=== PATIENT | male | born 1955 | race Caucasian/White ===

== ENCOUNTER → 2016-10-30 | Outpatient (CLI) | payer MEDICARE | END | disposition home or self-care (01) | LOC: GMAH 10:26 | PROVIDERS: ATTEND Family Medicine | DX: Z12.5 Encounter for screening for malignant neoplasm of prostate (principal) ==

== ENCOUNTER 2018-10-06 09:20 | Emergency (ER) | payer MEDICARE ==
--- NOTE | 2018-10-06 09:48 | ED.PDOC ---
History of Present Illness - General Chief Complaint: GI Problem Stated Complaint: constipated Time Seen by Provider: 10/06/18 09:33 Source: patient Exam Limitations: no limitations - History of Present Illness Initial Comments: Patient presents with constipation for one week. He says that he has had this before and usually docusate works for him. He was prescribed Milk of Magnesia 6 days ago but says that it does not work. Since yesterday, he has noticed BRBPR. He has COPD with chronic oxygen use by DE at 2 liters and this morning he said that he was dyspneic and required 3 liters. He has also noticed an increase in lower extremity edema. He has had the LE edema before. He also believes that his abdominal girth has increased recently. He denies cardiac problems but then says that he is unsure if he has ever been diagnosed with CHF. Denies chest pain. He takes hydrocodone and uses Fentanyl patches for chronic back pain. No other complaints. Timing/Duration: 1 week Severity: moderate Improving Factors: nothing Worsening Factors: nothing Associated Symptoms: other - as in HPI Allergies/Adverse Reactions: Allergies Latex Allergy (Intermediate, Verified 10/06/18 09:35) Rash Acetaminophen [From Tylenol] Allergy (Mild, Verified 10/06/18 09:35) Ciprofloxacin [From Cipro] Allergy (Mild, Verified 10/06/18 09:35) Sulfa Antibiotics Allergy (Mild, Verified 10/06/18 09:35) Sulfamethoxazole w/Trimethoprim [From Bactrim] Allergy (Mild, Verified 10/06/18 09:35) Home Medications: Ambulatory Orders Aspirin [Aspirin Childrens] 81 mg PO DAILY 07/24/15 Cyclobenzaprine HCl [Flexeril] 10 mg PO Q8H PRN 07/24/15 Fentanyl 25 mcg TOP Q72H 07/24/15 Fluticasone Prop 0.05% Nasal [Flonase Nasal [place]] 1 spray BNAS DAILY 07/24/15 HYDROcodone 5MG/APAP 325MG [[place] 5/325] 1 tab PO Q4HR PRN 07/24/15 Ipratropium/Albuterol Inhaler [Combivent Respimat 20-100 Mcg/Act] 1 aer IN PRN PRN 07/24/15 Metoprolol Tartrate [Lopressor] 50 mg PO BID 07/24/15 Simvastatin [Zocor] 5 mg PO BEDTIME 07/24/15 Terazosin [Hytrin] 5 mg PO DAILY 07/24/15 Fluocinonide 0.05 % Cream [Lidex Cream] 15 gm TOP DAILY #1 tube 07/27/15 Furosemide Tab [Lasix] 20 mg PO QD@0900,1700 #30 tab 07/27/15 Lisinopril 10 mg PO QAM #30 tab 07/27/15 Albuterol Sulfate [Proair Hfa] 2 puff INH Q6H PRN 10/06/18 Fluticasone Furoate-Vilanterol [Breo Ellipta] 1 inh IN DAILY 10/06/18 Review of Systems - Review of Systems Constitutional: States: no symptoms reported EENTM: States: no symptoms reported Respiratory: States: see HPI Cardiology: States: see HPI Gastrointestinal/Abdominal: States: see HPI Genitourinary: States: no symptoms reported Musculoskeletal: States: no symptoms reported Skin: States: no symptoms reported Neurological: States: no symptoms reported Endocrine: States: no symptoms reported Hematologic/Lymphatic: States: no symptoms reported Past Medical History (General) - Patient Medical History Hx Seizures: No Hx Stroke: No Hx Asthma: No Hx of COPD: Yes Hx Cardiac Disorders: No Hx Congestive Heart Failure: Yes Hx Pacemaker: No Hx Hypertension: Yes Hx Diabetes: No Hx Gastroesophageal Reflux: No Hx Cancer: No Hx MRSA: No - Vaccination History Hx Tetanus, Diphtheria Vaccination: No Hx Influenza Vaccination: Yes Hx Pneumococcal Vaccination: Yes Immunizations Up to Date: No - Social History Hx Tobacco Use: No Hx Alcohol Use: Yes - occ Hx Substance Use: No Hx Substance Use Treatment: No Hx Depression: No Hx Physical Abuse: No Hx Emotional Abuse: No - Female History Patient is a Female of Child Bearing Age (10 -59 yrs old): No Family Medical History - Family History Mother Name: Oneyda Villalpando Age (years): 67 Living Status: Age at (years of age): 67 Cause of : Cancer Hx Family Asthma: No Hx Family Congestive Heart Failure: Yes - Pt Hx Family Hypertension: Yes - Father, Pt, Brothers Hx Family Stroke: Yes - Father Hx Cardiac Disease: Yes - Pt CHF Hx Family Diabetes: No Hx Family Cancer: Yes - Mother, grandmother, grandfather, uncle Physical Exam - Physical Exam General Appearance: Alert Eye Exam: bilateral normal Ears, Nose, Throat: normal ENT inspection Neck: non-tender, full range of motion, supple Respiratory: lungs clear, normal breath sounds Cardiovascular/Chest: normal peripheral pulses, regular rate, rhythm, other - 1+ non-pitting bipedal edema Gastrointestinal/Abdominal: normal bowel sounds, non tender, soft, distended Back Exam: normal inspection, no CVA tenderness Extremity: normal range of motion, non-tender, pedal edema - 1+ non-pitting Neurologic: no motor/sensory deficits, alert, normal mood/affect Skin Exam: normal color Lymphatic: no adenopathy Progress - Progress Progress: 10/06/18 12:21 Laboratory Tests 10/06/18 10/06/18 10/06/18 10:05 10:05 10:05 WBC 3.9 L RBC 2.18 L Hgb 8.1 L Hct 24.2 L MCV 111.0 H MCH 37.1 H MCHC 33.4 RDW 13.6 Plt Count 97 L MPV 8.9 Absolute Neuts (auto) 2.80 Absolute Lymphs (auto) 0.60 L Absolute Monos (auto) 0.40 Absolute Eos (auto) 0.00 Absolute Basos (auto) 0.00 Neutrophils % 72.2 Lymphocytes % 16.1 L Monocytes % 9.9 H Eosinophils % 1.1 Basophils % 0.7 RBC Morphology Stain quality accept PT INR PTT (SP) Sodium 133 L Potassium 5.8 H Chloride 96 L Carbon Dioxide 28 Anion Gap 14.8 BUN 48 H Creatinine 2.84 H BUN/Creatinine Ratio 16.9 Random Glucose 105 Serum Osmolality 279.4 Calcium 8.7 Total Bilirubin 1.7 H AST 112 H ALT 81 H Alkaline Phosphatase 141 H Creatine Kinase 84 CK-MB (CK-2) 1.3 CK-MB (CK-2) % Not Reportable Troponin I 0.03 B-Natriuretic Peptide 44.7 Serum Total Protein 6.4 Albumin 2.4 L Globulin 4.0 H Albumin/Globulin Ratio 0.6 L 10/06/18 10:05 WBC RBC Hgb Hct MCV MCH MCHC RDW Plt Count MPV Absolute Neuts (auto) Absolute Lymphs (auto) Absolute Monos (auto) Absolute Eos (auto) Absolute Basos (auto) Neutrophils % Lymphocytes % Monocytes % Eosinophils % Basophils % RBC Morphology PT 11.7 H INR 1.17 H PTT (SP) 35.2 H Sodium Potassium Chloride Carbon Dioxide Anion Gap BUN Creatinine BUN/Creatinine Ratio Random Glucose Serum Osmolality Calcium Total Bilirubin AST ALT Alkaline Phosphatase Creatine Kinase CK-MB (CK-2) CK-MB (CK-2) % Troponin I B-Natriuretic Peptide Serum Total Protein Albumin Globulin Albumin/Globulin Ratio Hb 8.1. We obtained labs from his pcp from 09/02/18 and the Hb was 11.1. Todays Cr was 2.84. One month ago it was 0.6. The patient's anemia is acute and so is his renal insufficiency. CT showed hepatic cirrhosis but no obstruction. Blood was typed and screened. Patient's systolic blood pressure was 111 upon arrival and he had a brief excursion into the 80s. He was given a test bolus of NS 250 and his SBP went to 92. He was asymptomatic at that time. Rather than wait for blood to be available when the possibility of transfusion was unclear, the patient was started on NS at 250 ml/hour and transferred to [facility] for higher level of care. He will need nephrology and gastroenterology. The patient voiced understanding and agreement with this plan. Departure - Departure Clinical Impression: Anemia, GI bleed, Acute renal failure (ARF), Dyspnea Disposition: Transfer to Hospital Condition: Fair Departure Forms: ED Discharge - Pt. Copy, Patient Portal Self Enrollment Diet: other - NPO Activity: other - as per hospitalist Referrals: Paul Pedraza MD [Primary Care Provider] - 1-2 Weeks Home Medications: Ambulatory Orders Aspirin [Aspirin Childrens] 81 mg PO DAILY 07/24/15 Cyclobenzaprine HCl [Flexeril] 10 mg PO Q8H PRN 07/24/15 Fentanyl 25 mcg TOP Q72H 07/24/15 Fluticasone Prop 0.05% Nasal [Flonase Nasal [place]] 1 spray BNAS DAILY 07/24/15 HYDROcodone 5MG/APAP 325MG [[place] 5/325] 1 tab PO Q4HR PRN 07/24/15 Ipratropium/Albuterol Inhaler [Combivent Respimat 20-100 Mcg/Act] 1 aer IN PRN PRN 07/24/15 Metoprolol Tartrate [Lopressor] 50 mg PO BID 07/24/15 Simvastatin [Zocor] 5 mg PO BEDTIME 07/24/15 Terazosin [Hytrin] 5 mg PO DAILY 07/24/15 Fluocinonide 0.05 % Cream [Lidex Cream] 15 gm TOP DAILY #1 tube 07/27/15 Furosemide Tab [Lasix] 20 mg PO QD@0900,1700 #30 tab 07/27/15 Lisinopril 10 mg PO QAM #30 tab 07/27/15 Albuterol Sulfate [Proair Hfa] 2 puff INH Q6H PRN 10/06/18 Fluticasone Furoate-Vilanterol [Breo Ellipta] 1 inh IN DAILY 10/06/18
--- NOTE | 2018-10-06 10:15 | RAD ---
EXAM DESCRIPTION: Chest,2 Views CLINICAL HISTORY: dyspnea COMPARISON: Chest radiograph dated July 27, 2015 TECHNIQUE: PA and lateral views of the chest FINDINGS: Cardiac silhouette shows upper limits of normal heart size. Pulmonary vascularity is within normal limits. Persistent elevation of the right hemidiaphragm relative to the left with loss of right lung volume. Linear opacities in the left lung base most likely represent subsegmental atelectasis. Otherwise, lungs show no confluent infiltrates. Redemonstration of right apical scarring. Bilateral costophrenic angles are sharp. There is no pneumothorax. Visualized osseous structures show no destructive lesions. IMPRESSION: 1. Persistent elevation of the right hemidiaphragm relative to the left with loss of right lung volume, not significantly changed compared to chest radiograph of July 27, 2015. 2. Linear opacities in the left lung base most likely represent subsegmental atelectasis. Otherwise, lungs show no confluent infiltrates. 3. Upper limits of normal heart size. No olvin congestive heart failure. 4. Other findings as above. Electronically signed by: Shayan Raman MD 10/06/2018 10:11 AM [facility]
[2018-10-06] MEDS ORDERED: PANTOPRAZOLE SODIUM IV 40 MG VIAL IV ONE (11:29)
--- NOTE | 2018-10-06 11:31 | CT ---
EXAM DESCRIPTION: Abdoment/Pelvis w/o Contrast CLINICAL HISTORY: 63 years, Male, blood per rectum, constipation COMPARISON: None. TECHNIQUE: CT of the abdomen and pelvis is performed according to our non contrast protocol. FINDINGS: The lung bases show partial volume loss above elevated hemidiaphragm on the right. Left lung base appears clear. Heart is prominent with coronary calcification. Cirrhotic liver is noted with irregular liver surface and prominent left lobe compared to the right. No complicating liver tumor is identified on noncontrast images. No calcified stones in the gallbladder. Spleen is large measuring 13.7 cm in craniocaudal length. Adrenal glands appear normal. The right kidney contains a stone 4 mm. No hydronephrosis. Another right renal stone measures 5 mm. TENS unit is seen posteriorly. Degenerative changes in the lumbar spine with previous L5-S1 fusion. The left kidney is unremarkable. No renal stones or hydronephrosis. Small bowel loops appear normal in caliber with normal wall thickness. Large amount of free fluid consistent with ascites. In the pelvis, the appendix is surgically absent. No inflammation around the cecum or terminal ileum or sigmoid colon. No stones in the distal ureters or bladder. Rectal wall thickness is normal for degree of distention. No free fluid or mass in the pelvis. Prostate appears prominent 4 cm in transverse dimension with coarse internal calcifications and mild invagination of the bladder base. No inguinal or lower pelvic adenopathy. Coronal and sagittal reformatted images confirm the findings. IMPRESSION: Cirrhotic liver with moderate to large amount of ascites. Splenomegaly Right renal stones without obstructive uropathy. This exam was performed according to our departmental dose-optimization program, which includes automated exposure control, adjustment of the mA and/or kV according to patient size and/or use of iterative reconstruction technique. Total DLP equals 1660.19 mGycm. Electronically signed by: Charlie Leon MD 10/06/2018 11:28 AM [employer] [employer]
[2018-10-06] MEDS ORDERED: OCTREOTIDE ACETATE 50 MCG in SODIUM CHLORIDE 0.9% 100ML 100 ML IVPB ONE (11:32)
[2018-10-06] MEDS ORDERED: SODIUM CHLORIDE 0.9% 250ML 250 ML IVS ONE (11:46)
[2018-10-06] MEDS ORDERED: OCTREOTIDE ACETATE 500 MCG in SODIUM CHLORIDE 0.9% 100ML 100 ML IVPB SCH (12:00)
[2018-10-06] MEDS ORDERED: SODIUM CHLORIDE 0.9% 100ML 100 ML IVPB ONE ×3 (12:03→12:05)
[2018-10-06] MEDS ORDERED: OCTREOTIDE ACETATE 100 MCG/ML VIAL ONE ×2 (12:03→12:04)
[2018-10-06] MEDS ORDERED: SODIUM CHLORIDE 0.9% 1000ML 1,000 ML ONE (12:22)
[2018-10-06 12:23] VITALS: BP 92/43; O2SAT 95
[2018-10-06] MEDS ORDERED: SODIUM CHLORIDE 0.9% 1000ML 1,000 ML IVS PRN (12:24)
[2018-10-06 12:40] VITALS: TEMP 98.8
== END 2018-10-06 12:40 | disposition short-term general hospital (02) ==
LOC: ER 09:20
DX: D64.9 Anemia, unspecified (principal); K62.5 Hemorrhage of anus and rectum; N17.9 Acute kidney failure, unspecified; R06.00 Dyspnea, unspecified; J44.9 Chronic obstructive pulmonary disease, unspecified; G89.29 Other chronic pain; M54.9 Dorsalgia, unspecified; I50.9 Heart failure, unspecified; I11.0 Hypertensive heart disease with heart failure; Z99.81 Dependence on supplemental oxygen; Z79.899 Other long term (current) drug therapy; Z91.040 Latex allergy status; Z88.2 Allergy status to sulfonamides; Z88.6 Allergy status to analgesic agent; Z88.1 Allergy status to other antibiotic agents; Z79.82 Long term (current) use of aspirin
CPT/HCPCS: 36415; 71046; 74176; 80053; 81001; 82550; 82553; 83880; 84484; 85025; 85610; 85730; 93005; J2354; J7030; J7050